=== PATIENT | female | born 1965 | race Caucasian/White ===

== ENCOUNTER 2017-07-10 12:46 | Emergency (ER) | END 2017-07-10 15:15 | disposition home or self-care (01) ==

== ENCOUNTER 2017-07-10 22:14 | Emergency (ER) | END 2017-07-11 06:13 | disposition home or self-care (01) ==

== ENCOUNTER 2017-07-29 13:54 | Emergency (ER) | END 2017-07-29 17:15 | disposition home or self-care (01) ==